=== PATIENT | male | born 1970 | race Caucasian/White ===

== ENCOUNTER → 2018-09-06 | Day surgery (SDC) | payer OTHER ==
[~2018-09-06] MED LIST: ACETAMINOPHEN 1000 MG/100 ML 100 ML IV ONE; ACETAMINOPHEN/CODEINE 300MG - 30MG TAB ONE; DEXAMETHASONE SOD PHOS INJ 4 MG/ML VIAL ONE; FENTANYL CITRATE/PF 100MCG/2 ML INJ ONE; GLYCOPYRROLATE INJ 1MG/ 5 ML SYR ONE; LIDOCAINE 1% W/EPINEPHRINE 20 ML VIAL ONE; LIDOCAINE HCL (LTA) 4 ML SOLN ONE; LIDOCAINE HCL 2% LOCAL INJ 5 ML SDV VIAL INJ ONE; MIDAZOLAM HCL 2 MG/2 ML VIAL ONE; NEOSTIGMINE 5 MG/5ML SYR ONE; ONDANSETRON HCL INJ 2MG/ML 2ML 2 MG/ML VIAL ONE; PHENYLEPHRINE HCL 1% 10 MG/ML VIAL ONE; PROMETHAZINE HCL (IM) 25 MG/ML VIAL ONE; PROPOFOL IV EMULSION 10 MG/ML 20 ML VIAL ONE; ROCURONIUM BROMIDE 10 MG/ML 5ML VIAL ONE; SEVOFLURANE INHAL SOLN 250 ML PEN BTL ONE
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
[2018-09-06 13:30] VITALS: BP 143/83
--- NOTE | 2018-09-06 20:01 | Operative Report ---
DATE OF PROCEDURE: 09/06/2018 SURGEON: Carrillo Case MD CHIEF COMPLAINT: Right thyroid nodule. POSTOPERATIVE DIAGNOSIS: Right thyroid nodule. OPERATIVE PROCEDURE: Right thyroidectomy with appropriate closure. ANESTHESIA: Anesthesiology group. INDICATION: This 48-year-old male was noted to have a nodule in the right thyroid on ultrasound. The patient denies any dysphagia, odynophagia, or shortness of breath. The patient's father had carcinoma of the thyroid. Ultrasound showed the patient has a 2 x 1.5 cm nodule in the right side. The patient has no hoarseness. There is no radiation to the head and neck area. The patient declined any needle aspiration of the nodule. It was decided that right thyroidectomy, possible total thyroidectomy and other necessary procedure will be beneficial for him. DESCRIPTION OF PROCEDURE: The patient was taken to the operating room, put under general anesthesia, and endotracheally intubated. The neck was prepped and draped in a sterile fashion. The patient was repositioned. The area was injected with 1% xylocaine with 1:100,000 epinephrine for hemostasis. Size of the incision was about 3 cm. The incision was about 2 fingerbreadths from the sternal notch. Dissection was carried down to the subplatysmal plane. Strap muscle was identified and this was . The superior pole of the thyroid has come into view. The superior pole of the thyroid was dissected from the surrounding soft tissue and the thyroid gland was rotated medially and inferiorly. This was done using the Harmonic Scalpel. The thyroid gland was delivered. The thyroid isthmus was dissected and transected using the Harmonic Scalpel. The inferior pole of the thyroid on the right side was dissected from the surrounding soft tissue. The inferior parathyroid gland came into view and not disturbed. The thyroid gland was rotated medially. The recurrent laryngeal nerve has come into view and this was not disturbed. The thyroid gland was dissected from the Her's ligament and the thyroid gland was delivered. This was sent for frozen section. The frozen section returned as adenomatous nodule. No obvious malignancy noted. Closure of the area was undertaken. The area was irrigated with copious amount of normal saline. Any bleeding area was controlled using the bipolar cautery. Residual remnant of the superior right thyroid pole was noted. This was dissected off and sent for permanent section. The strap muscle was advanced in the midline and closed loosely with one mattress suture. This was done using 3-0 Vicryl suture. The platysmal flap that was elevated was advanced to the midline and closed on itself using 3-0 Vicryl suture in the interrupted fashion. The skin incision was closed using 4-0 Prolene suture in interrupted fashion. Pressure dressing was applied. The patient tolerated the above procedure well with estimated blood loss of about 5 mL. He was given 20 mg of Decadron intraoperatively. The patient was able to be transferred to recovery room in stable condition. MD ELOISA LorenzanaH/MODL /[id number]
== END | disposition home or self-care (01) ==
LOC: OR 07:40
PROVIDERS: ATTEND Otolaryngology Otolaryngology/Facial Plastic Surgery
DX: D34 Benign neoplasm of thyroid gland (principal); H54.62 Unqualified visual loss, left eye, normal vision right eye; F17.200 Nicotine dependence, unspecified, uncomplicated; Z01.810 Encounter for preprocedural cardiovascular examination
CPT/HCPCS: 60210; 88305; 88307; 88331; 93005; J0131; J1100; J2001; J2250; J2370; J2405; J2550; J2704; J3490